=== PATIENT | male | born 1965 | race Hispanic/Latino ===

== ENCOUNTER 2025-01-31 16:44 | Emergency (ER) | payer OTHER ==
[~2025-01-31] VITALS: Ht 167.6 cm; Wt 79.4 kg
[2025-01-31 19:24] LABS: BASOPHILS % 0.1 % (0.0-1.0); EOSINOPHILS % 3.5 % (0.0-6.0); LYMPHOCYTES % 25.0 % (18.0-39.1); MONOCYTES % 10.8 % (4.4-11.3); NEUTROPHILS % 60.3 % (38.7-80.0); RED CELL DISTRIBUTION WIDTH 12.1 % (11.7-14.4)
[2025-01-31] MEDS: KETOROLAC TROMETHAMINE 30 MG/ML VIAL IV STA (19:31)
[2025-01-31 19:32] LABS: LEUKOCYTE ESTERASE ,URINE NEGATIVE (NEGATIVE); PROTEIN,URINE DIPSTICK NEGATIVE (NEGATIVE); URINE UROBILINOGEN 0.2 mg/dL (0.2 - 1)
[2025-01-31 19:48] LABS: EST GLOMERULAR FILTRATION RATE 100.0 ML/MIN (>=60)
[2025-01-31 20:30] VITALS: PULSE 65; RESP 18; TEMP 98.6; O2SAT 98
[2025-01-31] MEDS ORDERED: CYCLOBENZAPRINE5 MG PO (20:37)
[2025-01-31] MEDS ORDERED: NAPROSYN500 MG PO (20:37)
== END 2025-01-31 20:52 | disposition home or self-care (01) ==
LOC: ER 18:11
DX: R10.31 Right lower quadrant pain (principal); S39.011A Strain of muscle, fascia and tendon of abdomen, initial encounter; X58.XXXA Exposure to other specified factors, initial encounter; Y92.89 Other specified places as the place of occurrence of the external cause
CPT/HCPCS: 36415; 74176; 80053; 81001; 83690; 85025; 99284; J1885